=== PATIENT | female | born 1940 | race Caucasian/White ===

== ENCOUNTER 2016-07-27 14:07 | Emergency (ER) | payer BC, MEDICARE ==
[~2016-07-27] VITALS: Ht 157.5 cm; Wt 55.7 kg
[2016-07-27 14:18] VITALS: BP 146/73; PULSE 80; RESP 16; TEMP 98.7; O2SAT 98
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
[2016-07-27] MEDS ORDERED: METF500T PO (14:27)
[2016-07-27] MEDS ORDERED: LOSA50TA PO (14:27)
[2016-07-27] MEDS ORDERED: LOVA40TA PO (14:27)
[2016-07-27] MEDS ORDERED: FENO145T2 PO (14:27)
--- NOTE | 2016-07-27 15:24 | RADHPO ---
EXAM DATE/TIME: 07/27/2016 14:49 [facility] COMPARISON: No previous studies available for comparison. INDICATIONS : Head injury yesterday, swelling left forehead. RADIATION DOSE: 63.70 CTDIvol (mGy) MEDICAL HISTORY : Hypertension. Diabetes mellitus type 1. SURGICAL HISTORY : None. ENCOUNTER: Initial ACUITY: 2 days PAIN SCALE: 0/10 LOCATION: Left cranial TECHNIQUE: Multiple contiguous axial images were obtained of the head. Using automated exposure control and adj ustment of the mA and/or kV according to patient size, radiation dose was kept as low as reasonably a chievable to obtain optimal diagnostic quality images. 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 There is no evidence of intracranial mass or hemorrhage. There is nothing to suggest acute infarction. Ventricles are symmetric and normal. There is mild left frontal scalp swelling. No evidence of underlying skull fracture. Mastoids and facial s inuses are clear. CONCLUSION: No acute intracranial injury Eulalio Rodriguez MD on July 27, 2016 at 15:20 Board Certified Radiologist. This report was verified electronically.
== END 2016-07-27 15:45 | disposition home or self-care (01) ==
LOC: PHEFT 14:07
DX: S00.03XA Contusion of scalp, initial encounter (principal); V93.4 Struck by falling object on board watercraft
CPT/HCPCS: 70450